=== PATIENT | female | born 1950 | race Caucasian/White ===

== ENCOUNTER → 2021-10-05 | Outpatient (CLI) | payer OTHER | LOC: LAB SHORT 16:23 | DX: R30.0 Dysuria (principal) | CPT/HCPCS: 87086 ==

== ENCOUNTER → 2021-10-14 | Outpatient (CLI) | payer OTHER ==
[2021-10-14 20:17] LABS: Appearance, Urine Clear (Clear); Bilirubin, Urine Neg (Neg); Blood, Urine 5+ (Neg); Color, Urine Yellow (P-Yellow); Glucose Qualitative, Urine Neg (Neg); Ketones, Urine Neg (Neg); Leukocyte Esterase, Urine 3+ (Neg); Nitrite, Urine Neg (Neg); Protein, Urine 2+ (Neg); Urobilinogen, Urine NORM (Normal)
[2021-10-14 20:45] LABS: Bacteria Few /hpf; Mucus Light (0-Heavy); Red Blood Cells, Urine 25-50 /hpf (0-2); Squamous Epithelial Cells Mod /hpf (Few)
[2021-10-14 20:46] LABS: Amorphous Light (0-Heavy)
== END | disposition home or self-care (01) ==
LOC: LAB SHORT 13:00
PROVIDERS: Registered Nurse
DX: R35.0 Frequency of micturition (principal)
CPT/HCPCS: 81001; 87086

== ENCOUNTER → 2022-06-18 | Outpatient (CLI) | payer OTHER ==
[2022-06-18 07:53] LABS: Source, Urine Clean Catch
[2022-06-18 09:50] LABS: Appearance, Urine Clear (Clear); Bilirubin, Urine Neg (Neg); Blood, Urine 4+ (Neg); Color, Urine Yellow (P-Yellow); Glucose Qualitative, Urine Neg (Neg); Ketones, Urine Neg (Neg); Leukocyte Esterase, Urine Neg (Neg); Nitrite, Urine Neg (Neg); Protein, Urine Neg (Neg); Urobilinogen, Urine NORM (Normal)
[2022-06-18 10:15] LABS: White Blood Cells, Urine 0-2 /hpf (0-5)
[2022-06-18 10:32] LABS: Bacteria Rare /hpf; Squamous Epithelial Cells Few /hpf (Few)
== END | disposition home or self-care (01) ==
LOC: LAB SHORT 07:15 → LAB 07:15
PROVIDERS: Registered Nurse
DX: N30.01 Acute cystitis with hematuria (principal)
CPT/HCPCS: 81001

== ENCOUNTER 2022-08-20 07:44 | Day surgery (SDC) | payer OTHER ==
[~2022-08-20] VITALS: Ht 170.2 cm; Wt 81.8 kg
[2022-08-20] MEDS ORDERED: ATOR20 PO (08:36)
[2022-08-20] MEDS ORDERED: PARO20 PO (08:37)
[2022-08-20] MEDS ORDERED: METO25 PO (08:37)
[2022-08-20] MEDS ORDERED: XARELTO20 MG PO (08:37)
--- NOTE | 2022-08-20 12:40 | NUR ---
ASSUMED CARE OF PT. PT ALERT AND ORIENTED, COOPERATIVE; DENIES PAIN. MONITOR PACED 60, B/P 128/61, SPO2 96% RA. L CHEST GEN CHANGE SITE NO SWELLING/HEMATOMA, TELFA AND TEGADERM DRSG INTACT. PT'S AT BEDSIDE ATTENTIVE.
--- NOTE | 2022-08-20 13:05 | NUR ---
DR MENDOZA IN TO CHANGE DRESSING.
--- NOTE | 2022-08-20 13:15 | NUR ---
PT DRESSED SELF WITHOUT ISSUE, SITE UNCHANGED; IV REMOVED-CANNULA INTACT.
--- NOTE | 2022-08-20 13:26 | NUR ---
PT AND RECEIVED DISCHARGE INSTRUCTIONS, MED LIST AND AFTER CARE INSTRUCTIONS; VERBALIZED GOOD UNDERSTANDING. PT LEFT FACILITY VIA W/C, CONDITION STABLE.
== END 2022-08-20 13:26 | disposition home or self-care (01) ==
LOC: MHTC 07:44
DX: Z45.010 Encounter for checking and testing of cardiac pacemaker pulse generator [battery] (principal); R00.1 Bradycardia, unspecified; I48.0 Paroxysmal atrial fibrillation; E78.5 Hyperlipidemia, unspecified; I10 Essential (primary) hypertension; J44.9 Chronic obstructive pulmonary disease, unspecified; F17.210 Nicotine dependence, cigarettes, uncomplicated; Z79.01 Long term (current) use of anticoagulants
CPT/HCPCS: 33228; 99152; 99153; C1781; C1785; J0690; J1644; J2250; J3010; J7030; J7040

== ENCOUNTER → 2023-02-17 | Outpatient (CLI) | payer OTHER ==
[~2023-02-17] MED LIST: ATOR20 PO; METO25 PO; PARO20 PO; XARELTO20 MG PO
== END | disposition home or self-care (01) ==
LOC: LAB SHORT 17:04 → LAB 17:04
DX: H60.331 Swimmer's ear, right ear (principal); R31.0 Gross hematuria
CPT/HCPCS: 87070; 87077; 87086; 87147; 87186; 87205

== ENCOUNTER 2025-03-02 09:56 | Emergency (ER) | payer OTHER ==
[~2025-03-02] VITALS: Ht 170.2 cm; Wt 81.7 kg
[2025-03-02] MEDS ORDERED: FentaNYL Citrate 50 MCG/ML 2 ML Injection IV ONE (12:55)
[2025-03-02] MEDS ORDERED: OXAYDO5 M1 PO (13:00)
[2025-03-02 14:48] VITALS: BP 167/56
== END 2025-03-02 14:50 | disposition home or self-care (01) ==
LOC: ER 09:56
DX: S82.62XA Displaced fracture of lateral malleolus of left fibula, initial encounter for closed fracture (principal); W18.30XA Fall on same level, unspecified, initial encounter; Z79.899 Other long term (current) drug therapy
CPT/HCPCS: 29515; 73610; 73630; 96374-59; 99284-25; J3010